=== PATIENT | male | born 1950 | race Caucasian/White ===

== ENCOUNTER 2017-12-26 23:49 | Inpatient (IN) | payer OTHER ==
[~2017-12-26] VITALS: Ht 180.3 cm; Wt 85.5 kg
[~2017-12-26 23:49] MED LIST: AZILECT1 MG PO; CARBIDOPA/LEVO1 EACH PO; COQ-10100 MG PO; KENALOG,ARISTOC80 GM TP; PERCOCET 5/31 TABLET PO; PRESERVISION T1 EACH PO; VIAGRA50 MG PO
[2017-12-27 00:18] LABS: BASOPHIL (%) 0.9 % (0-1); EOSINOPHIL COUNT 0.4 K/uL (0-0.3); HEMATOCRIT 42.8 % (38.0-50.0); HEMOGLOBIN 14.7 G/DL (12.5-16.6); IMMATURE GRANULOCYTE (%) 0.4 % (0.0-0.7); LYMPHOCYTE (%) 22.7 % (15-42); MCH 29.1 PG (29.0-34.0); MCHC 34.3 G/DL (30.0-36.0); MCV 84.6 FL (86-99); MONOCYTE COUNT 0.4 K/uL (0-0.8); NEUTROPHIL COUNT 2.7 K/uL (1.8-6.4); PLATELET COUNT 174 K/uL (156-360); RBC DIS.WIDTH-CV 13.7 % (11.8-14.6); RBC DIS.WIDTH-SD 42.4 % (39-53); RED BLOOD COUNT 5.06 M/uL (4.00-5.50); WHITE BLOOD COUNT 4.5 K/uL (4.1-10.2)
[2017-12-27 00:31] LABS: INTER. NORMALIZED RATIO 1.1
[2017-12-27 00:34] LABS: AMYLASE 25 IU/L (1-118); CHLORIDE 104 mEq/L (99-109); POTASSIUM 3.9 mEq/L (3.7-5.4); PTT 25.9 SEC (25-37)
[2017-12-27 00:35] LABS: SODIUM 138 mEq/L (136-147)
[2017-12-27 00:36] LABS: GLUCOSE 136 mg/dL (70-99)
[2017-12-27 00:40] LABS: CREATININE 1.2 mg/dL (0.6-1.3); GFR ESTIMATE (CALCULATED) > 59 mL/min/ (58.99-99999); SERUM ETHYL ALCOHOL < 10 mg/dL
[2017-12-27 00:41] LABS: UREA NITROGEN (BUN) 15 mg/dL (9-23)
[2017-12-27 00:43] LABS: LIPASE 20 U/L (1.0-51.0)
[2017-12-27 00:51] LABS: TROP-I INTERPRETATION NEGATIVE; TROPONIN-I < 0.01 ng/mL (0.0-0.30)
[2017-12-27 02:53] LABS: APPEARANCE CLEAR ((CLEAR)); BILIRUBIN NEGATIVE; BLOOD NEGATIVE; COLOR STRAW ((YELLOW)); GLUCOSE (STRIP) NEGATIVE; KETONES NEGATIVE; LEUKOCYTES NEGATIVE; NITRITE NEGATIVE; PROTEIN (STRIP) NEGATIVE; SPECIFIC GRAVITY 1.034 (1.000-1.030); UCUL ADDED? NO
[2017-12-27 03:04] LABS: AMPHETAMINE NEGATIVE (500 ng/mL); BARBITURATES NEGATIVE (200 ng/mL); BENZODIAZEPINES NEGATIVE (150 ng/mL); BUPRENORPHINE NEGATIVE (10 ng/mL); COCAINE NEGATIVE (150 ng/mL); METHADONE NEGATIVE (200 ng/mL); METHAMPHETAMINE NEGATIVE (500 ng/mL); OPIATES (MORPHINE) NEGATIVE (100 ng/mL); OXYCODONE NEGATIVE (100 ng/mL); PHENCYCLIDINE NEGATIVE (25 ng/mL); PROPOXYPHENE NEGATIVE (300 ng/mL); THC CANNABINOIDS NEGATIVE (50 ng/mL); TRICYCLIC ANTIDEPRESSANTS NEGATIVE (300 ng/mL)
[2017-12-27] MEDS ORDERED: SINEMET CR 50-1 EACH PO (04:00)
[2017-12-27] MEDS ORDERED: PROTONIX40 MG PO (04:01)
[2017-12-27] MEDS ORDERED: LEXAPRO10 MG PO (04:02)
[2017-12-27] MEDS ORDERED: COZAAR25 MG PO (04:03)
[2017-12-27] MEDS ORDERED: SINEMET 25-1001 EACH PO (04:05)
[2017-12-27 06:27] VITALS: BP 129/73
[2017-12-27 06:52] LABS: TROP-I INTERPRETATION NEGATIVE; TROPONIN-I 0.04 ng/mL (0.0-0.30)
[2017-12-27 07:07] LABS: HDL CHOLESTEROL 43 MG/DL (Desirable>=40); LDL CHOLESTEROL 147 mg/dL (Desirable<100); NON-HDL CHOLESTEROL 155 mg/dL (Desirable<160); TOTAL CHOLESTEROL 198 mg/dL (Desirable<200); TRIGLYCERIDES 40 MG/DL (Normal: <150)
[2017-12-27 07:49] VITALS: BP 131/83
[2017-12-27 11:24] LABS: HEMOGLOBIN A1c (GLYCOHEMOGLOB) 5.6 % (Below 5.7)
[2017-12-27 11:28] VITALS: BP 143/77
[2017-12-27 12:12] LABS: TROP-I INTERPRETATION NEGATIVE; TROPONIN-I 0.01 ng/mL (0.0-0.30)
[2017-12-27 20:18] VITALS: BP 118/57
[2017-12-27 23:58] VITALS: BP 122/66
[2017-12-28 04:56] VITALS: BP 114/55
[2017-12-28 05:52] LABS: BASOPHIL (%) 0.1 % (0-1); EOSINOPHIL (%) 0 % (0-5); HEMATOCRIT 45.9 % (38.0-50.0); HEMOGLOBIN 15.1 G/DL (12.5-16.6); IMMATURE GRANULOCYTE (%) 0.5 % (0.0-0.7); LYMPHOCYTE (%) 3.8 % (15-42); LYMPHOCYTE COUNT 0.5 K/uL (1.0-2.8); MCH 28.4 PG (29.0-34.0); MCHC 32.9 G/DL (30.0-36.0); MCV 86.3 FL (86-99); MONOCYTE (%) 2.7 % (3-12); MONOCYTE COUNT 0.3 K/uL (0-0.8); NEUTROPHIL (%) 92.9 % (45-76); NEUTROPHIL COUNT 11.9 K/uL (1.8-6.4); PLATELET COUNT 196 K/uL (156-360); RBC DIS.WIDTH-SD 44.4 % (39-53); RED BLOOD COUNT 5.32 M/uL (4.00-5.50); WHITE BLOOD COUNT 12.8 K/uL (4.1-10.2)
[2017-12-28 06:17] LABS: CHLORIDE 101 MEQ/L (99-109); CREATININE 0.9 MG/DL (0.6-1.3); GFR ESTIMATE (CALCULATED) > 59 mL/min/ (58.99-99999); GLUCOSE 132 mg/dL (70-99); POTASSIUM 4.4 MEQ/L (3.7-5.4); SODIUM 135 MEQ/L (136-147); UREA NITROGEN (BUN) 13 mg/dL (9-23)
[2017-12-28 07:39] VITALS: BP 106/52
[2017-12-28 11:47] VITALS: BP 142/71
[2017-12-28] MEDS ORDERED: ASPIR-LOW81 MG PO (15:36)
[2017-12-28] MEDS ORDERED: DOCUSATE SODIU100 MG PO (15:37)
[2017-12-28] MEDS ORDERED: ANTIVERT25 MG PO (15:37)
[2017-12-28] MEDS ORDERED: AUGMENTIN875 MG PO (15:38)
[2017-12-28] MEDS ORDERED: ZOFRAN4 MG PO (15:39)
[2017-12-28 15:49] VITALS: BP 129/68
[2017-12-28 20:09] VITALS: BP 130/62
[2017-12-28 23:40] VITALS: BP 127/71
[2017-12-29 05:59] LABS: BASOPHIL (%) 0.2 % (0-1); EOSINOPHIL (%) 0.1 % (0-5); HEMATOCRIT 39.6 % (38.0-50.0); HEMOGLOBIN 13.3 G/DL (12.5-16.6); IMMATURE GRANULOCYTE (%) 0.4 % (0.0-0.7); LYMPHOCYTE (%) 6.3 % (15-42); LYMPHOCYTE COUNT 0.6 K/uL (1.0-2.8); MCH 29.1 PG (29.0-34.0); MCHC 33.6 G/DL (30.0-36.0); MCV 86.7 FL (86-99); MONOCYTE (%) 6.5 % (3-12); MONOCYTE COUNT 0.6 K/uL (0-0.8); NEUTROPHIL (%) 86.5 % (45-76); NEUTROPHIL COUNT 8.5 K/uL (1.8-6.4); PLATELET COUNT 171 K/uL (156-360); RBC DIS.WIDTH-CV 14.4 % (11.8-14.6); RBC DIS.WIDTH-SD 45.5 % (39-53); RED BLOOD COUNT 4.57 M/uL (4.00-5.50); WHITE BLOOD COUNT 9.8 K/uL (4.1-10.2)
[2017-12-29 06:22] LABS: CHLORIDE 104 MEQ/L (99-109); CREATININE 0.9 MG/DL (0.6-1.3); GFR ESTIMATE (CALCULATED) > 59 mL/min/ (58.99-99999); POTASSIUM 3.8 MEQ/L (3.7-5.4); SODIUM 139 MEQ/L (136-147); UREA NITROGEN (BUN) 19 mg/dL (9-23)
[2017-12-29 06:42] LABS: GLUCOSE 88 mg/dL (70-99)
[2017-12-29] MEDS ORDERED: PREDNISONE10 MG PO (07:27)
[2017-12-29 07:31] VITALS: BP 136/77
== END 2017-12-29 10:30 | disposition home or self-care (01) | DRG 177 ==
LOC: EME 23:49 → 5SOUTH 12-27 04:33 → EDOF 12-27 04:33 → ENRESERV 12-27 04:34 → 5SOUTH 12-27 05:49
PROVIDERS: Emergency Medicine; Hospitalist; Internal Medicine
DX: J69.0 Pneumonitis due to inhalation of food and vomit (principal); J96.01 Acute respiratory failure with hypoxia; R13.10 Dysphagia, unspecified; G20 Parkinson's disease; H81.399 Other peripheral vertigo, unspecified ear; I34.1 Nonrheumatic mitral (valve) prolapse; I65.22 Occlusion and stenosis of left carotid artery; Z85.89 Personal history of malignant neoplasm of other organs and systems; Z92.3 Personal history of irradiation; H93.3X9 Disorders of unspecified acoustic nerve
CPT/HCPCS: 70450; 70496; 70498; 70551; 71045; 80048; 80061; 81003; 82150; 83036; 83605; 83690; 84484; 85025; 85610; 85730; 86850; 86900; 86901; 87040; 92610 GN; 93005; 94640; 94799; 99281; 99285; G0480; J0295; J1100; J1650; J1956; J2765; J2930; J7030; J7050; S0030